=== PATIENT | male | born 1945 | race Native Hawaiian/Other Pacific Islander ===

== ENCOUNTER 2016-04-15 12:52 | Emergency (ER) | payer OTHER ==
--- NOTE | 2016-04-15 13:43 | EDPHY ---
H & P Stated Complaint: nasal congestion x 2 weeks (concerned because never had before ) Time Seen by Provider: 04/15/16 13:26 HPI/ROS: CHIEF COMPLAINT: Nasal congestion HISTORY OF PRESENT ILLNESS: The patient is a 71 y/o male complaining of worsening nasal congestion over the last 3 weeks. He saw his physician this week and was told it he likely had a virus and was given nasal spray. He felt better for a few days but never completely recovered. Last night he was sneezing and coughing a lot with "my nose draining like a sink" and was unable to breathe through his nose, which made it difficulty for him to sleep. He reports the drainage is yellowish-white in color. He denies any no facial pain or headache, fever, shortness of breath, or other complaints. REVIEW OF SYSTEMS: Constitutional: No fever, no chills Eyes: No drainage ENT: see HPI Respiratory: No cough, no shortness of breath Cardiac: No chest pain Gastrointestinal: No nausea, no vomiting, no abdominal pain Musculoskeletal: No leg pain or swelling Skin: No rash Neurological: No headache Source: Patient - Personal History Current Tetanus/Diphtheria Vaccine: Unsure Current Tetanus Diphtheria and Acellular Pertussis (TDAP): Unsure - Medical/Surgical History PMH: Denies Hx Asthma: No Hx Chronic Respiratory Disease: No Hx Diabetes: No Hx Cardiac Disease: Yes Hx Renal Disease: No Hx Cirrhosis: No Hx Alcoholism: No Hx HIV/AIDS: No Hx Splenectomy or Spleen Trauma: No Other PMH: heart arrythmia - Social History Smoking Status: Former smoker Additional Social History: Former smoker - Physical Exam Exam: General Appearance: Alert, nontoxic Eyes: Pupils equal and round, no conjunctival injection ENT, Mouth: Mucous membranes moist, no pharyngeal. No tenderness over sinuses. Neck: Normal inspection Respiratory: Lungs are clear to auscultation Cardiovascular: Regular rate and rhythm Neurological: A&O, nonfocal, normal gait Skin: Warm and dry, no rash Psychiatric: Mood and affect normal Constitutional: Initial Vital Signs Temperature (C) 36.4 C 04/15/16 13:11 Heart Rate 75 04/15/16 13:11 Respiratory Rate 16 04/15/16 13:11 Blood Pressure 120/74 04/15/16 13:11 O2 Sat (%) 98 04/15/16 13:11 O2 Delivery Mode Room Air Allergies/Adverse Reactions: No Known Allergies Allergy (Verified 04/15/16 13:10) Home Medications: Medication Instructions Recorded Aspirin 81mg (*) 10/21/15 Flonase Nasal [place] 04/15/16 Medical Decision Making ED Course/Re-evaluation: This is a healthy 71 y/o male presenting with symptoms of sinusitis for the last 3 weeks. OTC treatments have not improved his symptoms and he has so much congestion and rhinorrhea that he is having difficulty sleeping. His exam is unremarkable. I've recommended using Sudafed and I've written a script for Augmentin for his symptoms. I recommended following up with his PCP in a week if not improved. He is comfortable with this plan. - Data Points Medications Given: Discontinued Medications Amoxicillin/Clavulanate Potassium (Augmentin 875mg) 875 mg PO EDNOW ONE PRN Reason: Protocol Stop: 04/15/16 13:46 Last Admin: 04/15/16 13:48 Dose: 875 mg Departure - Departure Disposition: Home, Routine, Self-Care Clinical Impression: Acute sinusitis Qualifiers: Sinusitis location: other Recurrence: non-recurrent Qualified Code(s): J01.80 - Other acute sinusitis Condition: Good Instructions: Sinusitis (ED) Additional Instructions: 1. Take Sudafed as directed on the packing for nasal congestion. It is available at the pharmacy counter. This medication will wake you up so I recommend taking it in the morning rather than the evening. 2. Take Augmentin (antibiotic) as prescribed. Be sure to finish the entire prescription even if you feel better. 3. Follow up with your primary care provider for symptoms not improved over the next week. Referrals: Madhav Akers MD [Medical Doctor] - As per Instructions Report Scribed for: Christel Perez Report Scribed by: Karen Bradshaw Date of Report: 04/15/16 Time of Report: 13:30 Physician Review and Approval Statement: 04/15/16 13:30 Portions of this note were transcribed by a medical officer psychiatry. I personally performed a history, physical exam, medical decision making, and confirmed accuracy of information the transcribed note.
[2016-04-15] MEDS ORDERED: AMOXICILLIN/CLAVULANATE POT 875/125 MG TAB PO ONE (13:45)
[2016-04-15 14:02] VITALS: BP 120/80; PULSE 78; RESP 20; TEMP 98.1; O2SAT 96
== END 2016-04-15 14:02 | disposition home or self-care (01) ==
DX: J01.80 Other acute sinusitis (principal); Z87.891 Personal history of nicotine dependence

== ENCOUNTER 2016-06-12 10:10 | Emergency (ER) | payer OTHER ==
--- NOTE | 2016-06-12 10:38 | EDPHY ---
H & P Time Seen by Provider: 06/12/16 10:38 HPI/ROS: CHIEF COMPLAINT: Shortness of breath going up the stairs and chills HISTORY OF PRESENT ILLNESS: Patient started having chills 2 days ago. No cough but shortness of breath and difficulty going up the stairs. No chest pain. He went to his primary care physician's office today and was sent here for evaluation. Shortness of breath is only with exertion. It is mild to moderate. Not associated with leg pain or leg swelling. No hemoptysis. REVIEW OF SYSTEMS: Eye: no change in vision ENT: no sore throat Cardiac: no chest pain or syncope Pulmonary: HPI Abdomen: no vomiting, diarrhea, abdominal pain Musculoskeletal: no back pain Skin: no rash Neuro: no headache Constitutional: no fever : no urinary symptoms A comprehensive 10 point review of systems is otherwise negative aside from elements mentioned in the history of present illness. PAST MEDICAL HISTORY: Dysrhythmia, ablation for SVT Social history: Former smoker General Appearance: Alert and conversant, cooperative. Eyes: No scleral icterus. ENT, Mouth: Normal mucous membranes. Respiratory: Crackles right lower lung greater than left Cardiovascular: Regular rate and rhythm. Gastrointestinal: Abdomen is soft and non tender. Neurological: Alert and oriented x3. Normally conversant. Face symmetric, normal movement and sensation in all extremities. Skin: Warm and dry, no rashes. Musculoskeletal: No peripheral edema and no joint swelling. No calf tenderness. Psychiatric: Not agitated. Emergency Department course/MDM: 1146: CT angiography discussed and consented with pulmonary abnormality on chest x-ray and elevated D-dimer. 1207: Results discussed, good candidate for outpatient management. IV ceftriaxone and azithromycin given in emergency department. Results and plan discussed at this time. Liam at 1217. OK to DC with clinic followup. Patient looks well, in good spirits, speaking in full sentences, not hypoxemic. His PORT/PSI is class 3 with really only points for age and male gender. It is my clinical judgment the patient looks clinically well enough to be treated as an outpatient and that is what he would like to try as well. Smoking Status: Former smoker Constitutional: Initial Vital Signs Temperature (C) 37.1 C 06/12/16 10:27 Heart Rate 79 06/12/16 10:27 Respiratory Rate 20 06/12/16 10:27 Blood Pressure 132/74 H 06/12/16 10:27 O2 Sat (%) 93 06/12/16 10:27 O2 Delivery Mode Room Air Allergies/Adverse Reactions: No Known Allergies Allergy (Verified 06/12/16 10:26) Home Medications: Medication Instructions Recorded Aspirin 81mg (*) 10/21/15 Flonase Nasal [place] 04/15/16 Azithromycin 250 mg PO DAILY #4 tablet 06/12/16 Lipitor 06/12/16 Medical Decision Making - Diagnostics EKG Interpretation: 12-lead EKG interpreted by me; official reading is in trace master. My interpretation is sinus tachycardia rate 105, PVC, nonspecific inferior T-wave flattening. Imaging Results: Imaging Impressions Chest X-Ray 06/12/16 10:48 Impression: Right lower lobe airspace consolidation - pneumonia versus aspiration. Chest/Thorax CTA 06/12/16 11:40 Impression: 1. No evidence of pulmonary embolus using CT protocol. 2. Moderate consolidation/pneumonia right lower lobe. These findings were discussed by telephone with Dr. Dc Palma at 1206 hrs. Chest x-ray shows right lower lung pneumonia, personally interpreted. CT angio at 12:[address] Mcfarland shows pneumonia but no pulmonary embolism. Imaging: I viewed and interpreted images myself Differential Diagnosis: Differential diagnosis considered for shortness of breath including but not limited to pulmonary infectious process, COPD, asthma, pulmonary embolus and congestive heart failure. - Data Points Laboratory Results: Laboratory Results 06/12/16 10:55 06/12/16 10:55 06/12/16 06/12/16 06/12/16 10:55 10:55 10:55 WBC 4.45 10^3/uL 10^3/uL (3.80-9.50) RBC 5.78 10^6/uL 10^6/uL (4.40-6.38) Hgb 17.6 g/dL H g/dL (13.7-17.5) Hct 51.0 % % (40.0-51.0) MCV 88.2 fL fL (81.5-99.8) MCH 30.4 pg pg (27.9-34.1) MCHC 34.5 g/dL g/dL (32.4-36.7) RDW 12.2 % % (11.5-15.2) Plt Count 107 10^3/uL L 10^3/uL (150-400) MPV 10.6 fL fL (8.7-11.7) Neut % (Auto) 86.0 % H % (39.3-74.2) Lymph % (Auto) 9.2 % L % (15.0-45.0) [place] % (Auto) 4.0 % L % (4.5-13.0) Eos % (Auto) 0.0 % L % (0.6-7.6) Baso % (Auto) 0.4 % % (0.3-1.7) Nucleat RBC Rel Count 0.0 % % (0.0-0.2) Absolute Neuts (auto) 3.82 10^3/uL 10^3/uL (1.70-6.50) Absolute Lymphs (auto) 0.41 10^3/uL L 10^3/uL (1.00-3.00) Absolute Monos (auto) 0.18 10^3/uL L 10^3/uL (0.30-0.80) Absolute Eos (auto) 0.00 10^3/uL L 10^3/uL (0.03-0.40) Absolute Basos (auto) 0.02 10^3/uL 10^3/uL (0.02-0.10) Absolute Nucleated RBC 0.00 10^3/uL 10^3/uL (0-0.01) Immature Gran % 0.4 % % (0.0-1.1) Seg Neutrophils % 26 % % Band Neutrophils % 62 % % Lymphocytes % 9 % % Monocytes % 2 % % Eosinophils % 1 % % Immature Gran # 0.02 10^3/uL 10^3/uL (0.00-0.10) Absolute Seg Neuts 1.16 10^/uL L 10^/uL (1.70-6.50) Absolute Band Neuts 2.76 10^3/uL H 10^3/uL (0.00-0.70) Absolute Lymphocytes 0.40 10^3/uL L 10^3/uL (1.00-3.00) Absolute Monocytes 0.09 10^3/uL L 10^3/uL (0.30-0.80) Absolute Eosinophils 0.04 10^3/uL 10^3/uL (0.03-0.40) RBC/WBC/PLT Morphology NORMAL (NORMAL) Toxic Granulation PRESENT H Platelet Estimate DECREASED L (ADEQ) D-Dimer 1.25 ug/mLFEU H ug/mLFEU (0.00-0.50) Sodium 135 mEq/L mEq/L (134-144) Potassium 4.4 mEq/L mEq/L (3.5-5.2) Chloride 101 mEq/L mEq/L (97-110) Carbon Dioxide 26 mEq/l mEq/l (22-31) Anion Gap 8 mEq/L mEq/L (8-16) BUN 19 mg/dL mg/dL (7-23) Creatinine 0.9 mg/dL mg/dL (0.7-1.3) Estimated GFR > 60 Glucose 107 mg/dL H mg/dL (70-100) Calcium 8.8 mg/dL mg/dL (8.5-10.4) Troponin I < 0.012 ng/mL ng/mL (0-0.034) Medications Given: Discontinued Medications Azithromycin 500 mg/ Dextrose 255 mls @ 255 mls/hr IV EDNOW ONE PRN Reason: Protocol Stop: 06/12/16 13:07 Last Admin: 06/12/16 13:38 Dose: 255 mls Ceftriaxone Sodium/Dextrose (Rocephin 1 Gm (Premix)) 50 mls @ 100 mls/hr IV EDNOW ONE PRN Reason: Protocol Stop: 06/12/16 12:37 Last Admin: 06/12/16 12:56 Dose: 50 mls Departure - Departure Disposition: Home, Routine, Self-Care Clinical Impression: Pneumonia Qualifiers: Pneumonia type: due to unspecified organism Laterality: right Lung location: lower lobe of lung Qualified Code(s): J18.1 - Lobar pneumonia, unspecified organism Condition: Good Instructions: Bacterial Pneumonia (ED) Referrals: Sherron Wheeler MD [Primary Care Provider] - As per Instructions (Follow-up in the office this week.) Prescriptions: Azithromycin 250 mg PO DAILY #4 tablet
--- NOTE | 2016-06-12 10:48 | CPEKG ---
Heart Rate: 105 RR Interval: 571 P-R Interval: 152 QRSD Interval: 98 QT Interval: 337 QTC Interval: 446 P [place]: 24 QRS [place]: 55 T Wave [place]: -35 EKG Severity - ABNORMAL ECG - EKG Impression: SINUS TACHYCARDIA EKG Impression: PAIRED VENTRICULAR PREMATURE COMPLEXES EKG Impression: NONSPECIFIC T ABNORMALITIES, INFERIOR LEADS Electronically Signed By: Dc Palma 12-Jun-2016 12:50:03
[2016-06-12 11:11] LABS: % IMMATURE GRANULYOCYTES 0.4 % (0.0-1.1); ABSOLUTE IMMATURE GRANULOCYTES 0.02 10^3/uL (0.00-0.10); ADD DIFF? NO; ADD MORPH? NO; ADD SCAN? YES; ATYPICAL LYMPHOCYTE FLAG 0 (0-99); FRAGMENT RBC FLAG 0 (0-99); HEMOGLOBIN 17.6 g/dL (13.7-17.5); LEFT SHIFT FLG 20 (0-99); LIPEMIA HEMOLYSIS FLAG 90 (0-99); MEAN CELL HEMOGLOBIN 30.4 pg (27.9-34.1); MEAN CELL HEMOGLOBIN CONCENTR. 34.5 g/dL (32.4-36.7); MEAN CELL VOLUME 88.2 fL (81.5-99.8); MEAN PLATELET VOLUME 10.6 fL (8.7-11.7); PLATELET CLUMPS FLAG 0 (0-99); PLATELET COUNT 107 10^3/uL (150-400); RED BLOOD CELL COUNT 5.78 10^6/uL (4.40-6.38); RED CELL DISTRIBUTION WIDTH 12.2 % (11.5-15.2)
[2016-06-12 11:26] LABS: ANION GAP 8 mEq/L (8-16); CALCIUM 8.8 mg/dL (8.5-10.4); CARBON DIOXIDE 26 mEq/l (22-31); CHLORIDE 101 mEq/L (97-110); CREATININE 0.9 mg/dL (0.7-1.3); GLOMERULAR FILTRATION RATE > 60; GLUCOSE 107 mg/dL (70-100); POTASSIUM 4.4 mEq/L (3.5-5.2); SODIUM 135 mEq/L (134-144)
[2016-06-12 11:37] LABS: TROPONIN I < 0.012 ng/mL (0-0.034)
[2016-06-12] MEDS ORDERED: IOPAMIDOL (ISOVUE 370) 100 ML BTL IV ONE (11:45)
[2016-06-12] MEDS ORDERED: AZITHROMYCIN IV 500 MG in D5W 250 ML IV ONE (12:08)
[2016-06-12 12:18] LABS: SCAN POSITIVE
[2016-06-12 12:24] LABS: PLATELET ESTIMATE DECREASED (ADEQ); TOXIC GRANULATION PRESENT
[2016-06-12 15:24] VITALS: BP 152/71; PULSE 88; RESP 14; TEMP 98.2; O2SAT 96
== END 2016-06-12 15:23 | disposition home or self-care (01) ==
DX: J18.9 Pneumonia, unspecified organism (principal); Z79.82 Long term (current) use of aspirin; Z87.891 Personal history of nicotine dependence
CPT/HCPCS: 71020; 71275; 93005; 96365; 96367; 99285; J0456; J0696; Q9967

== ENCOUNTER → 2016-06-21 | Outpatient (CLI) | payer OTHER | LOC: FIMAGING 13:45 | PROVIDERS: ATTEND Family Medicine | DX: J13 Pneumonia due to Streptococcus pneumoniae (principal) ==

== ENCOUNTER → 2016-12-29 | Outpatient (CLI) | payer OTHER | LOC: FIMAGING 14:31 | PROVIDERS: ATTEND Family Medicine | DX: N49.2 Inflammatory disorders of scrotum (principal) ==

== ENCOUNTER → 2017-11-13 | Outpatient (CLI) | payer OTHER | LOC: FIMAGING 13:34 | PROVIDERS: ATTEND Family Medicine | DX: R05 Cough (principal); R06.02 Shortness of breath ==

== ENCOUNTER → 2017-11-27 | Outpatient (CLI) | payer OTHER | LOC: FIMAGING 08:16 | PROVIDERS: ATTEND Family Medicine | DX: R10.31 Right lower quadrant pain (principal); N40.0 Benign prostatic hyperplasia without lower urinary tract symptoms ==

== ENCOUNTER 2018-02-28 12:08 | Observation (INO) | payer OTHER ==
--- NOTE | 2018-02-27 17:10 | GHP ---
DATE OF ADMISSION: 02/28/2018 ADMISSION DIAGNOSIS: BPH with urinary obstruction. This is a 72-year-old gentleman who has had BPH with urinary obstruction. He has had normal PSA valu es and he has had assessment with a transrectal ultrasound that showed prostatic calcifications and i ntravesical lobe of the prostate. He has had urodynamics and it shows that he has high pressure void ing in small capacity bladder and urgency. He has had no family history of prostate cancer. He has been on no medications. At the present time, he is admitted for TURP. Indications, complications associated with this discussed. Written and verbal consent have been obta ined. PAST MEDICAL HISTORY: His past history besides the BPH. He has had no other medical problems. PAST SURGICAL HISTORY: Urodynamics, hernia repair, cystoscopy, and rotator cuff repair. ALLERGIES: No known drug allergies. FAMILY HISTORY: Significant for prostate cancer. SOCIAL HISTORY: Moderate alcohol consumption, former smoker and . Self-employed. REVIEW OF SYSTEMS: Negative cardiac respiratory GI and endocrine. PHYSICAL EXAM: VITAL SIGNS: In the office, blood pressure 144/86, O2 saturation on room air 96%, res pirations 16, heart rate 76. His weight 174 pounds. Height 6 feet and BMI is 23.73. Physical exam v ital signs stable. CHEST: Clear. HEART: Regular rate and rhythm. ABDOMEN: Normal, no organomegal y, rebound or guarding. LOWER EXTREMITIES: Normal. : Prostate is benign and I have reviewed his p revious examinations in the office. He has had a postvoid residual of 138, and his prostate volume i n 2016 was measured at 51 g. ASSESSMENT AND PLAN: At the present time, he is admitted for transurethral resection of the prostate . Indication, complications, options have been discussed. Written and verbal consent have been obtai suha. He is admitted for the above procedure, observation overnight stay. /[id number]/MODL
--- NOTE | 2018-02-28 08:52 | PDHPUP ---
History & Physical Update H&P update statement: This history and physical update is based on an assessment of the patient which was completed after admission or registration (within 24 hours), but prior to the surgery/procedure. H&P update: H&P reviewed & patient examined, no change in patient's condition since H&P completed
[2018-02-28] MEDS ORDERED: ceFAZolin 2 GM/DEXTROSE 100 ML IV ONE (12:43)
[2018-02-28] MEDS ORDERED: LR 1,000 ML IV ONE (12:44)
[2018-02-28] MEDS ORDERED: MIDAZOLAM 2 MG/2 ML VIAL IVP ONE (14:23)
--- NOTE | 2018-02-28 14:23 | PDANEPAE ---
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 - Pulmonary History Hx COPD: No Hx Asthma/Reactive Airway Disease: No Hx Recent Upper Respiratory Infection: No Hx Oxygen in Use at Home: No Hx Sleep Apnea: Yes Sleep Apnea Screening Result - Last Documented: Positive Pulmonary History Comment: OLIVIA uses CPAP - Neurologic History Hx Cerebrovascular Accident: No Hx Seizures: No Hx Dementia: No - Endocrine History Hx Diabetes: No - Renal History Hx Renal Disorders: No - Liver History Hx Hepatic Disorders: No - Neurological & Psychiatric Hx Hx Neurological and Psychiatric Disorders: No - Cancer History Hx Cancer: No - Congenital Disorder History Hx Congenital Disorders: No - GI History Hx Gastrointestinal Disorders: No - Other Health History Other Health History: none - Chronic Pain History Chronic Pain: No - Surgical History Prior Surgeries: SHOULDER SURGERY 2017 ANE Review of Systems Review of Systems: - Exercise capacity METS (RN): 5 METS ANE Patient History - Allergies Allergies/Adverse Reactions: No Known Allergies Allergy (Verified 02/26/18 14:46) - Home Medications Home Medications: Aspirin 81mg (*) 10/21/15 [Last Taken 3 Days Ago ~02/25/18] Lipitor 06/12/16 [Last Taken 02/25/18] Cialis 02/26/18 [Last Taken 3 Months Ago ~11/28/17] Fish Oil 1000 mg (*) 02/26/18 [Last Taken 02/28/18] Proair Hfa 02/26/18 [Last Taken Unknown] Temazepam 02/26/18 [Last Taken 3 Months Ago ~11/28/17] Viagra 02/26/18 [Last Taken 3 Months Ago ~11/28/17] - NPO status NPO Since - Liquids (Date): 02/28/18 NPO Since - Liquids (Time): 11:00 NPO Since - Solids (Date): 02/27/18 NPO Since - Solids (Time): 23:00 - Smoking Hx Smoking Status: Former smoker - Family Anes Hx Family Hx Anesthesia Complications: NONE ANE Labs/Vital Signs - Vital Signs Height: 182.88 cm Weight: 79.379 kg ANE Physical Exam - Airway Neck exam: FROM Mallampati Score: Class 2 Mouth exam: normal dental/mouth exam - Pulmonary Pulmonary: no respiratory distress, no rales or rhonchi - Cardiovascular Cardiovascular: regular rate and rhythym, no murmur, rub, or gallop - ASA Status ASA Status: II ANE Anesthesia Plan Anesthesia Plan: general endotracheal anesthesia, GA w LMA Total IV Anesthesia: No
[2018-02-28] MEDS ORDERED: MIDAZOLAM 2 MG/2 ML VIAL ONE (14:29)
[2018-02-28] MEDS ORDERED: LIDOCAINE 2% 5 ML SDV ONE (14:32)
[2018-02-28] MEDS ORDERED: ROCURONIUM 50 MG/5 ML VIAL ONE (14:32)
[2018-02-28] MEDS ORDERED: PROPOFOL 200 MG/20 ML VIAL ONE (14:33)
[2018-02-28] MEDS ORDERED: fentaNYL 100 MCG/2 ML INJ ONE ×3 (14:33→16:15)
[2018-02-28] MEDS ORDERED: NALOXONE HCL 0.4 MG/ML INJ IVP PRN (15:37)
[2018-02-28] MEDS ORDERED: oxyCODONE IR 5 MG TAB PO PRN (15:52)
[2018-02-28] MEDS ORDERED: DIAZEPAM 5 MG/ML 1 ML SYR IVP PRN (15:52)
[2018-02-28] MEDS ORDERED: HYDROmorphONE/DILAUDID 2 MG/ML INJ IVP PRN (15:52)
[2018-02-28] MEDS ORDERED: LR 500 ML IV PRN (15:52)
[2018-02-28] MEDS ORDERED: ONDANSETRON 4 MG/2 ML VIAL IVP PRN ×2 (15:52→15:59)
[2018-02-28] MEDS ORDERED: PROMETHAZINE HCL 25 MG/ML INJ IVP PRN (15:52)
--- NOTE | 2018-02-28 15:57 | POSTOPPROG ---
Post Op Note Date of Operation: 02/28/18 (dictated) Surgeon: Kendall Potter Anesthesiologist: Zohaib Anesthesia: LMA Pre-op Diagnosis: bph / retention, OAB Procedure: turp Inf/Abcess present in the surg proc area at time of surgery?: No EBL: Minimal Drains: Other (cam) Specimen(s): sent
[2018-02-28] MEDS ORDERED: ONDANSETRON DISINTEGRATING 4 MG TAB PO PRN (15:59)
[2018-02-28] MEDS ORDERED: ZOLPIDEM TARTRATE 5 MG TAB PO PRN (15:59)
[2018-02-28] MEDS ORDERED: D5W LR 1,000 ML IV SCH (16:00)
--- NOTE | 2018-02-28 16:05 | GOP ---
DATE OF OPERATION: 02/28/2018 SURGEON: Kendall Potter MD PREOPERATIVE DIAGNOSIS: BPH, urinary obstruction, retention, overactive bladder. POSTOPERATIVE DIAGNOSIS: BPH, urinary obstruction, retention, overactive bladder. PROCEDURE PERFORMED: Transurethral resection of the prostate. FINDINGS: SPECIMENS: Sent to pathology. DESCRIPTION OF PROCEDURE: He underwent general anesthesia, prepped and draped in normal sterile fash ion in dorsal lithotomy position. After appropriate time-out, the resectoscope was passed in the gaurang dder under direct vision. He had elevated bladder neck, intravesical lobe of the prostate and he had +3 to 4 trabeculation of the bladder and ureteral orifice right at the bladder neck. So at that poi nt, I took down the intravesical lobe of the prostate. The right lateral lobe and a portion of the p osterior lobe. Hemostasis provided with cauterization. Left lateral lobe, left portion of the poste rior lobe resected in a similar fashion. Bladder was Ellik'd free of all chips and clots. Visualiza tion revealed no residual chips or clots. Ureteral orifices preserved. External sphincter approxima vito at the midline symmetrically. A 22 three-way catheter passed in over a Mandarin guide, and 90 cc balloon inflated. Traction placed, and irrigated clear. He will be admitted for postoperative care. No complications. /[id number]/MODL
[2018-02-28] MEDS: fentaNYL 100 MCG/2 ML INJ IVP PRN ×2 (16:17→16:55)
[2018-02-28] MEDS ORDERED: HYDROmorphONE/DILAUDID 2 MG/ML INJ ONE (16:29)
[2018-02-28] MEDS: OPIUM/BELLADONNA ALKALO SUPP PR PRN (16:41)
[2018-02-28] MEDS ORDERED: oxyCODONE IR 5 MG TAB ONE ×2 (17:12)
[2018-02-28] MEDS ORDERED: HYDROCODONE/APAP 5/325 TAB ONE (17:17)
[2018-02-28] MEDS: HYDROCODONE/APAP 5/325 TAB PO PRN ×2 (17:19→21:56)
[2018-02-28] MEDS: ACETAMINOPHEN 325 MG TAB PO PRN ×2 (17:42→23:49)
[2018-03-01] MEDS: HYDROCODONE/APAP 5/325 TAB PO PRN (10:38)
[2018-03-01] MEDS: OPIUM/BELLADONNA ALKALO SUPP PR PRN (11:04)
--- NOTE | 2018-03-01 15:50 | ASMTCMCOM ---
CM Note CM Note Notes: Pt admitted for TURP procedure for prostate hypertrophy. Spoke with pt in the room who lives with and has support from daughter as well. Pt comfortable discharging independently. No Therapies ordered. RN also comfortable with this plan. No CM needs noted at this time. CM to follow. D/c Plan: Independent Date Signed: 03/01/2018 03:48 PM Electronically Signed By:Gloria Fraser
[2018-03-01 16:07] VITALS: BP 123/77
--- NOTE | 2018-03-01 17:03 | ASDISCHSUM ---
Discharge Information Plan Status:Home with No Needs Medically Cleared to Leave:02/28/2018 Discharge Date:02/28/2018 CM D/C Disposition:Home, Routine, Self-Care ADT D/C Disposition:Home, Routine, Self-Care Projected Discharge Date:02/28/2018 Transportation at D/C:Family Discharge Delay Reason: Follow-Up Date:02/28/2018 Discharge Slot: Final Diagnosis:BPH Placement Information Patient Contact Information Contact Name:GAVIOTA Relationship: Address:[address] Work Phone: City:[employer] [facility] Phone: State/Zip Code:[place] [address] Email: Financial Information Financial Class:Medicare Primary Plan Desc:MEDICARE OUTPATIENT Primary Plan Number:[id number] Secondary Plan Desc:WENDY Secondary Plan Number:[id number] Assessment Information [facility] CM Progress Note CM Note CM Note Notes: Pt admitted for TURP procedure for prostate hypertrophy. Spoke with pt in the room who lives with and has support from daughter as well. Pt comfortable discharging independently. No Therapies ordered. RN also comfortable with this plan. No CM needs noted at this time. CM to follow. D/c Plan: Independent Date Signed: 03/01/2018 03:48 PM Electronically Signed By:Gloria Fraser Case Management Discharge Plan Note Case Management Discharge Discharge Order Complete? Answers: Yes Patient to Obtain Answers: via Family Medications Transportation Arranged Answers: Family/Friends Transport will Pick (Date 03/01/2018 12:00 AM & Time) Family Notified Answers: Yes Notes: in the room Discharge Comments Notes: Pt to discharge independently. No CM needs noted at this time. Date Signed: 03/01/2018 05:03 PM Electronically Signed By:Gloria Fraser Intervention Information
--- NOTE | 2018-03-01 17:04 | ASMTLACE ---
MINIE Length of stay for Answers: 1 day current admission Acuity / Level of Answers: No Care: Did the patient have an inpatient admission? Comorbidities - select Answers: Other Notes: BPH all that apply # of Emergency department Answers: 0 visits in the last 6 months Score: 2 Date Signed: 03/01/2018 05:04 PM Electronically Signed By:Gloria Fraser
--- NOTE | 2018-03-01 17:30 | SOAPPROG ---
TASH Progress Note Assessment/Plan: Assessment: Benign localized hyperplasia of prostate with urinary obstruction Acute Plan: DC 03/01/18 17:29 Subjective: doing well and desires DC Objective: Vital Signs Temp Pulse Resp BP Pulse Ox 37.7 C 65 18 123/77 H 92 03/01/18 16:07 03/01/18 16:07 03/01/18 16:07 03/01/18 16:07 03/01/18 16:07 02/28/18 03/01/18 03/02/18 05:59 05:59 05:59 Intake Total 2150 438 Output Total 20 850 Balance 2130 -412 Physical Exam - Physical Exam General Appearance: alert Neck: normal inspection Respiratory: No respiratory distress Cardiac/Chest: regular rate, rhythm Abdomen: soft Back: No CVA tenderness Extremities: non-tender, No calf tenderness, No Mark's sign Neuro/Psych: alert, oriented x 3 ICD10 Worksheet Patient Problems: Problems Problem Status Onset Benign localized hyperplasia of prostate with urinary obstruction Acute
--- NOTE | 2018-03-02 14:26 | POSTANESTH ---
Post Anesthetic Evaluation Cardiovascular Status: Normal, Stable Respiratory Status: Normal, Stable Level of Consciousness/Mental Status: Can Participate in Eval Pain Control: Adequate, Prn Tx Ordered Nausea/Vomiting Control: Adequate, Prn Tx Ordered Complications Possibly Related to Anesthesia: None Noted
== END 2018-03-01 17:46 | disposition home or self-care (01) ==
LOC: F3N 12:30 → F1N 14:02
PROVIDERS: ADMIT Specialist; ATTEND Specialist
PROC: 0VB08ZZ Excision of Prostate, Via Natural or Artificial Opening Endoscopic (ICD-10-PCS; principal; 2018-02-28 14:37)
DX: N40.1 Benign prostatic hyperplasia with lower urinary tract symptoms (principal); I71.2 Thoracic aortic aneurysm, without rupture; N13.8 Other obstructive and reflux uropathy; G47.33 Obstructive sleep apnea (adult) (pediatric)
CPT/HCPCS: 52601; J0690; J1170; J2250; J2704; J3010